=== PATIENT | female | born 1950 | race Caucasian/White ===

== ENCOUNTER 2016-07-20 14:19 | Inpatient (IN) | payer MEDICARE ==
[~2016-07-20] VITALS: Ht 165.1 cm; Wt 62.6 kg
[2016-07-20] MEDS ORDERED: SODIUM CHLORIDE FLUSH 10ML SYR IVF ONE (15:00)
[2016-07-20] MEDS ORDERED: SODIUM CHLORIDE 0.9% 1,000ML IVBOLUS ONE (15:00)
[2016-07-20 15:21] LABS: ASPARTATE AMINO TRANSFERASE 20 U/L (15-37); BLOOD UREA NITROGEN 8 mg/dL (7-18)
[2016-07-20] MEDS ORDERED: PLEASE ENTER ALLERGIES MC SCH ×4 (15:30)
[2016-07-20] MEDS ORDERED: VANCOMYCIN PER PHARMACY MC ONE (15:30)
[2016-07-20] MEDS ORDERED: VANCOMYCIN 1,200 MG in SODIUM CHLORIDE 0.9% 250 ML IV ONE (16:00)
[2016-07-20] MEDS ORDERED: TRAZ50TA18 PO (16:47)
[2016-07-20] MEDS ORDERED: LEVO25TA4 PO (16:47)
[2016-07-20] MEDS ORDERED: LEVA15HF2 INH (16:47)
[2016-07-20] MEDS ORDERED: SODIUM CHLORIDE 0.9% 1,000 ML IV SCH (17:36)
[2016-07-20] MEDS: DAPTOMYCIN 250 MG in SODIUM CHLORIDE 0.9% 100 ML IV SCH (17:45)
[2016-07-20] MEDS ORDERED: DOCUSATE 100 MG CAPSULE PO PRN (18:00)
[2016-07-20] MEDS ORDERED: HYDROcodone/APAP 5/325 TABLET PO PRN (18:00)
[2016-07-20] MEDS ORDERED: ACETAMINOPHEN 325 MG TABLET PO PRN (18:00)
[2016-07-20] MEDS ORDERED: POLYETHYLENE GLYCOL 17 GM PACKET PO PRN (18:00)
[2016-07-20] MEDS ORDERED: ONDANSETRON 2MG/ML, 2ML IVPush PRN (18:00)
[2016-07-20] MEDS ORDERED: hydrALAzine 20 MG/ML, 1ML IVPush PRN (18:00)
[2016-07-20] MEDS ORDERED: LORazepam 2 MG/ML, 1ML IVPush PRN (18:00)
[2016-07-20] MEDS ORDERED: MORPHINE SULFATE 4 MG/ML, 1ML IVPush PRN (18:00)
[2016-07-20 19:59] VITALS: BP 120/83
[2016-07-20] MEDS: TRAZODONE 50MG TABLET PO SCH (23:16)
[2016-07-21 02:24] VITALS: BP 101/65
[2016-07-21] MEDS ORDERED: ALBUTEROL SULFATE 2.5 MG/3 ML NPPB PRN (02:30)
[2016-07-21 06:22] LABS: ASPARTATE AMINO TRANSFERASE 15 U/L (15-37); BLOOD UREA NITROGEN 6 mg/dL (7-18)
[2016-07-21] MEDS: LEVOTHYROXINE 25 MCG TABLET PO SCH (06:38)
[2016-07-21 06:50] VITALS: BP 121/81
[2016-07-21] MEDS ORDERED: LEVOTHYROXINE 25 MCG TABLET PO SCH (09:00)
[2016-07-21 13:30] VITALS: BP 123/77
[2016-07-21] MEDS: DAPTOMYCIN 250 MG in SODIUM CHLORIDE 0.9% 100 ML IV SCH (17:27)
[2016-07-21 18:54] VITALS: BP 125/82
[2016-07-21] MEDS: TRAZODONE 50MG TABLET PO SCH (21:13)
[2016-07-22 02:12] VITALS: BP 101/64
[2016-07-22] MEDS: LEVOTHYROXINE 25 MCG TABLET PO SCH (05:39)
[2016-07-22 07:29] VITALS: BP 126/81
[2016-07-22] MEDS ORDERED: DAPTOMYCIN 250 MG in SODIUM CHLORIDE 0.9% 100 ML IV SCH (15:00)
[2016-07-22 15:32] VITALS: BP 120/83
[2016-07-22 20:46] VITALS: BP 120/81
[2016-07-22] MEDS: TRAZODONE 50MG TABLET PO SCH (22:12)
[2016-07-23 00:32] VITALS: BP 101/75
[2016-07-23] MEDS: LEVOTHYROXINE 25 MCG TABLET PO SCH (06:09)
[2016-07-23 07:25] VITALS: BP 125/79
[2016-07-23] MEDS ORDERED: DAPT500V6 IV (10:28)
[2016-07-23] MEDS ORDERED: DAPTOMYCIN 250 MG in SODIUM CHLORIDE 0.9% 100 ML IV SCH (12:00)
== END 2016-07-23 14:20 | disposition home or self-care (01) | DRG 314 ==
LOC: ED 16:34 → EDIP 16:35 → ED 16:43 → 3NE 19:55
PROC: B5181ZA Fluoroscopy of Superior Vena Cava using Low Osmolar Contrast, Guidance (ICD-10-PCS; principal; 2016-07-23)
PROC: 02HV33Z Insertion of Infusion Device into Superior Vena Cava, Percutaneous Approach (ICD-10-PCS; 2016-07-23)
PROC: B548ZZA Ultrasonography of Superior Vena Cava, Guidance (ICD-10-PCS; 2016-07-23)
DX: T80.211A Bloodstream infection due to central venous catheter, initial encounter (principal); A41.02 Sepsis due to Methicillin resistant Staphylococcus aureus; E43 Unspecified severe protein-calorie malnutrition; Y83.8 Other surgical procedures as the cause of abnormal reaction of the patient, or of later complication, without mention of misadventure at the time of the procedure; E88.01 Alpha-1-antitrypsin deficiency; J44.9 Chronic obstructive pulmonary disease, unspecified; D75.89 Other specified diseases of blood and blood-forming organs; E03.9 Hypothyroidism, unspecified; E86.0 Dehydration; G47.00 Insomnia, unspecified; M54.5 Low back pain; K76.9 Liver disease, unspecified; M19.90 Unspecified osteoarthritis, unspecified site; M81.0 Age-related osteoporosis without current pathological fracture; Z82.49 Family history of ischemic heart disease and other diseases of the circulatory system; Z88.8 Allergy status to other drugs, medicaments and biological substances; Z79.899 Other long term (current) drug therapy; Z88.0 Allergy status to penicillin; Z88.1 Allergy status to other antibiotic agents; Y92.89 Other specified places as the place of occurrence of the external cause; Z91.040 Latex allergy status; Z90.49 Acquired absence of other specified parts of digestive tract; Z90.710 Acquired absence of both cervix and uterus
CPT/HCPCS: 36415; 36569; 71020; 71275; 76937; 77001; 80053; 81003; 83605; 83735; 84100; 84145; 84443; 85025; 87040; 93005; 93306; 96360; 96361; J0878; C1751; J7030

== ENCOUNTER → 2016-12-09 | Outpatient (CLI) | payer MEDICARE ==
[~2016-12-09] MED LIST: DAPT500V6 IV; LEVA15HF4 INH; LEVO25TA4 PO; TRAZ50TA18 PO
== END | disposition home or self-care (01) ==
LOC: CFH 11:55
PROVIDERS: ATTEND Surgery
DX: Z45.2 Encounter for adjustment and management of vascular access device (principal); E88.01 Alpha-1-antitrypsin deficiency
CPT/HCPCS: 93970

== ENCOUNTER → 2017-07-05 | Outpatient (CLI) | payer MEDICARE | END | disposition home or self-care (01) | LOC: CFH 10:59 | PROVIDERS: ATTEND Internal Medicine | DX: R91.1 Solitary pulmonary nodule (principal); J44.9 Chronic obstructive pulmonary disease, unspecified | CPT/HCPCS: 71250 ==

== ENCOUNTER → 2017-11-22 | Outpatient (CLI) | payer MEDICARE ==
[~2017-11-22] MED LIST changes: +TRAZ-136 PO; -TRAZ50TA18 PO
== END | disposition home or self-care (01) ==
LOC: CFH 11:12
PROVIDERS: ATTEND Internal Medicine
DX: R91.8 Other nonspecific abnormal finding of lung field (principal)
CPT/HCPCS: 71250